=== PATIENT | male | born 1955 | race Caucasian/White ===

== ENCOUNTER 2019-06-12 19:25 | Inpatient (IN) | payer MEDICAID, MEDICARE ==
[~2019-06-12] VITALS: Ht 172.7 cm; Wt 107.5 kg
[2019-06-12 19:25] VITALS: BP_SYST 137
[~2019-06-12 19:25] MED LIST: CLIN300C11 PO; DOXY100T2 PO; SACC250C3 PO
--- NOTE | 2019-06-12 19:31 | NUR ---
Pt from [facility] with c/o SOB and non-provoked C/P that radiates to Left neck and jaw with a pulling sensation x 3 hours [employer] [employer]. Pt also c/o of heaviness to left arm. Pt states that he's been coughing up copious amounts of green sputum x 2 days. Inspiratory wheezes to Left Lower Lung Castillo, scattered Rhonchi at all castillo, diminished to bases with SPO2 99% RA. Pt at [facility] for therapy to RLE. Redness, swelling and flaking skin to BLE and he was dx with cellulitis and tx at [place] with unknown antibiotics 7 days ago and finished course 2 days ago. Generalized pitting edema 2-3+ pitting to BLE. Abdomen distended, soft, active BS x 4.
--- NOTE | 2019-06-12 19:31 | NUR ---
Placed in room 01 . Placed on schedule announcer, blood pressure machine and pulse oximeter. To gown for exam. Side rails up.
--- NOTE | 2019-06-12 19:40 | NUR ---
Dr. West at bedside.
--- NOTE | 2019-06-12 19:45 | NUR ---
RT at bedside to administer breathing tx.
[2019-06-12] MEDS ORDERED: ASPIRIN 325 MG TABLET PO ONE (20:00)
[2019-06-12] MEDS ORDERED: IPRATROPIUM/ALBUTEROL SULFATE 3 ML AMPUL.NEB (DUONEB) ONE (20:00)
[2019-06-12] MEDS ORDERED: NITROGLYCERIN 0.4 MG TAB.SUBL SL ONE (20:00)
--- NOTE | 2019-06-12 20:00 | NUR ---
# 20 gauge angiocath placed to LFA. Use of asceptic technique. Opsite placed over site. Blood return noted. Blood for lab drawn from site. Flushed with 10 cc of normal saline. No evidence of infiltration noted. Patient tolerated well.
--- NOTE | 2019-06-12 20:00 | NUR ---
Pt continues to c/o left sided C/P 02/06, non-radiating. B/P 130/72, P 92, R 20, T 99. Dr. West made aware. NTG SL to be given.
--- NOTE | 2019-06-12 20:05 | NUR ---
ASA 325 mg PO given at this time.
--- NOTE | 2019-06-12 20:10 | NUR ---
X-ray at bedside.
--- NOTE | 2019-06-12 20:10 | NUR ---
Pt verbalizes mild relief in left sided C/P at 4/10. V/S 140/76, P 90, R 20, T 99.1, SPO2 100% RA. Second dose of NTG 0.4 mg SL given.
--- NOTE | 2019-06-12 20:15 | NUR ---
Pt verbalizes effective relief in C/P at 0/10. V/S 136/73, P 95, R 20, T 99.1, SPO2 100% RA. Dr. West made aware.
[2019-06-12 20:21] LABS: BASOPHILS % (AUTO) 0.4 % (0.0-2.0); EOSINOPHILS # (AUTO) 0.1 K/uL (0.0-0.4); EOSINOPHILS % (AUTO) 1.4 % (0.0-4.0); HEMATOCRIT 38.8 % (36-54); LYMPHOCYTES # (AUTO) 0.9 K/uL (1.0-5.5); LYMPHOCYTES % (AUTO) 18.6 % (20.5-51.5); MEAN CORPUSCULAR HEMOGLOBIN 30 pg (27-31); MEAN CORPUSCULAR HGB CONC 34 % (32-36); MEAN CORPUSCULAR VOLUME 88 fL (79.0-98.0); MONOCYTES # (AUTO) 0.6 K/uL (0.0-1.0); MONOCYTES % (AUTO) 11.2 % (1.7-9.3); NEUTROPHILS # (AUTO) 3.4 K/uL (1.8-7.7); NEUTROPHILS % (AUTO) 68.4 % (40.0-70.0); PLATELET COUNT (AUTO) 162 K/uL (130-430); RED CELL DISTRIBUTION WIDTH 14.2 % (9.0-15.0)
[2019-06-12 20:41] LABS: INR 0.9 (0.80-1.20); PROTHROMBIN TIME 9.1 SECS (9.5-12.5)
[2019-06-12 20:42] LABS: ALBUMIN 3.3 g/dL (3.4-4.8); CALCIUM 8.2 mg/dL (8.4-11.0); CREATININE 0.64 mg/dL (0.55-1.30); POTASSIUM 3.7 mmol/L (3.5-5.1); TOTAL BILIRUBIN 0.4 mg/dL (0.0-1.0)
[2019-06-12 21:14] LABS: CKMB RELATIVE INDEX 2.4 (0.0-2.9); CREATINE KINASE MB 7.7 ng/mL (0-3.6)
[2019-06-12 21:55] LABS: BILIRUBIN,URINE NEGATIVE (NEGATIVE); BLOOD, URINE NEGATIVE (NEGATIVE); CLARITY/URINE CLEAR (CLEAR); COLOR,URINE YELLOW (YELLOW); GLUCOSE,URINE NEGATIVE (NEGATIVE); KETONES,URINE NEGATIVE (NEGATIVE); LEUKOCYTE ESTERASE ,URINE NEGATIVE (NEGATIVE); NITRITE, URINE NEGATIVE (NEGATIVE); PH,URINE 7.5 (5.0-8.0); PROTEIN URINE NEGATIVE (NEGATIVE)
--- NOTE | 2019-06-12 22:00 | NUR ---
Pt resting quietly, even and non-labored respirations, VSS, NAD.
[2019-06-12 22:01] LABS: UROBILINOGEN,URINE >=8 (0.2-1.0)
[2019-06-12] MEDS ORDERED: IPRATROPIUM/ALBUTEROL SULFATE 3 ML AMPUL.NEB (DUONEB) INH ONE (23:15)
[2019-06-12] MEDS ORDERED: IOHEXOL 350 mgI/mL, 150 ML INFUS..BTL IV ONE (23:24)
[2019-06-13] VITALS (7 sets, daily range): BP systolic 119–151
--- NOTE | 2019-06-13 00:21 | NUR ---
ADMIT NOTE Received pt from ER to the floor with a diagnosis of chest pain. Admission process initiated. patient oriented to pain management, safety and call light-teach back done.
--- NOTE | 2019-06-13 00:25 | NUR ---
Patient will be admitted to care of Dr. Ocampo. Admitted to Tele unit. Will go to room 105B. Belongings list completed. Summary report printed. Report will be given at bedside.
--- NOTE | 2019-06-13 00:51 | NUR ---
CONSULT: CONSULT CALLED FOR DOCTOR LANCE I SPOKE WITH SHANTI MILLIGAN REASON FOR CONSULT: CHEST PAIN REQUESTING CONSULT: DR. LANDAVERDE SOLOIST DANCER PHONE NUMBER: [phone]
--- NOTE | 2019-06-13 01:00 | NUR ---
initial notes: pt is awake, alert, oriented x 4, no chest pain, no sob, not distress, vital signa re with in normal limit. sinus rhythm on monitor. iv lock to left fore arm gauge 20- intact and patent. dry flaky skin to both legs, pitting edema to both legs. no skin breakdown at the back. pt is able to ambulate with cane. assess pt and charted. refused flu vacc. discuss plan of care. orient to room and call light, and safety precaution. pt verbalized understanding. needs attended, call light in reach. low bed position. side rails up. will monitor.
--- NOTE | 2019-06-13 04:11 | NUR ---
pt wakes up. assisted pt to bathroom. stable. no pain. not distress. back to bed. needs attended. call light in reach. bed alarm on. will monitor.
--- NOTE | 2019-06-13 05:48 | NUR ---
sleeping, comfortable. no sob. no sign of pain, distress. stable. needs attended. call light in reach.low bed position. bed alarm on. will monitor.
--- NOTE | 2019-06-13 07:11 | NUR ---
closing: pt is sitting on edge of bed, alert, awake. no chest pain, stable. needs attended the whole shift. call light in reach. low bed position. will give bedside report to am rn.
--- NOTE | 2019-06-13 07:55 | NUR ---
INITIAL NOTE RECEIVED PT IN BED, NO S/S OF DISTRESS OR SOB NOTED, PT HAS NO C/O PAIN AT THIS TIME, PT IN STABLE CONDITION, PT AAOX4, VERBAL, IV CATHETER PATENT, NO SIGNS OF INFECTION OR INFILTRATION NOTED, SALINE LOCK. PT HAS NO C/O CHEST PAIN AT THIS TIME. BED AT LOWEST POSITION, CALL LIGHT WITHIN REACH, WILL CONTINUE TO MONITOR PT FOR ANY CHANGES, FALL AND SAFETY PRECAUTIONS IN PLACE.
--- NOTE | 2019-06-13 10:27 | NUR ---
ROUNDS PT IN BED, NO S/S OF DISTRESS OR SOB NOTED, PT HAS NO C/O PAIN AT THIS TIME. PT IN STABLE CONDITION. PT WATCHING TV, WILL CONTINUE TO MONITOR PT FOR ANY CHANGES.
[2019-06-13] MEDS: ACETAMINOPHEN 325 MG TABLET PO PRN ×2 (10:39→20:26)
[2019-06-13] MEDS: IPRATROPIUM/ALBUTEROL SULFATE 3 ML AMPUL.NEB (DUONEB) INH SCH ×4 (11:32→23:43)
--- NOTE | 2019-06-13 14:20 | NUR ---
DC Planning: YONI Lopez made aware that the pt has [place] insurance which may need to transfer to [place] in network. Jessica is to f/u with dr. Ocampo for the transfer order if pt required further treatments.
--- NOTE | 2019-06-13 14:31 | NUR ---
ROUNDS PT IN BED, NO S/S OF DISTRESS OR SOB NOTED. PT IN STABLE CONDITION. PT SLEEPING, WILL CONTINUE TO MONITOR PT FOR ANY CHANGES.
--- NOTE | 2019-06-13 16:25 | NUR ---
ROUNDS PT IN BED, NO S/S OF DISTRESS OR SOB NOTED. PT IN STABLE CONDITION. PT SLEEPING, WILL CONTINUE TO MONITOR PT FOR ANY CHANGES.
--- NOTE | 2019-06-13 17:02 | NUR ---
MD CALL DR LANCE YATES AND AWAITING CALL BACK TO SEE IF HE CLEARS PT TO BE D/C HOME TODAY.
--- NOTE | 2019-06-13 17:13 | NUR ---
CALL DR AKHIL YATES, AWAITING CALL BACK FOR D/C ORDER. Addendum: 06/13/19 at 1816 by Jessica Aviles RN CALLED BACK AND GAVE ORDERS FOR D/C
--- NOTE | 2019-06-13 18:13 | NUR ---
CALL DR AKHIL YATES TO MAKE HIM AWARE THAT PT IS SHORT OF BREATH WHEN HE LAST WALKED TO THE RESTROOM, NURSE ASKED PT TO WALK WITH HIM TO SEE IF HE WAS SHORT OF BREATH AND HE STATED THAT HE DID NOT WANT TO GET UP, HE ALSO STATED THAT HE DOES NOT HAVE A RIDE HOME AND HE DOES NOT HAVE KEYS TO GET INTO HIS HOUSE. CHARGE NURSE MADE AWARE. Addendum: 06/13/19 at 1827 by Jessica Aviles RN PULSE OXYMETRY AT 97% ON ROOM AIR, NO SOB NOTED.
--- NOTE | 2019-06-13 18:27 | NUR ---
CLOSING NOTE PT IN BED, NO S/S OF DISTRESS OR SOB NOTED, PT HAS NO C/O PAIN AT THIS TIME, PT IN STABLE CONDITION, PT AAOX4, VERBAL, IV CATHETER PATENT, NO SIGNS OF INFECTION OR INFILTRATION NOTED, SALINE LOCK. PT HAS NO C/O CHEST PAIN AT THIS TIME. BED AT LOWEST POSITION, CALL LIGHT WITHIN REACH, WILL ENDORSE CARE OF PT TO INCOMING NURSE, FALL AND SAFETY PRECAUTIONS IN PLACE.
--- NOTE | 2019-06-13 19:18 | NUR ---
OPENING NOTE RECEIVED CARE OF PT AND SBAR REPORT. PT RESTING IN BED, NO S/S OF ACUTE DISTRESS OR SOB NOTED. PT HAS NO C/O PAIN AT THIS TIME, PT IN STABLE CONDITION. PT AAOX4, ABLE TO VERBALIZE NEEDS. IV CATHETER IS PATENT, NO S/S OF INFILTRATION AT IV SITE. IV IS SALINE LOCKED. PT HAS NO C/O CHEST PAIN AT THIS TIME. SAFETY PRECAUTIONS ARE IN PLACE: BED IS LOCKED IN LOWEST POSITION, CALL LIGHT WITH PT, SIDE RAILS UP X2, BED ALARM ON, CLOSE TO NURSES STATION. WILL CONT TO MONITOR.
--- NOTE | 2019-06-13 20:26 | NUR ---
HEADACHE/TYLENOL PT REPORTING HEADACHE. TYLENOL 650 MG PO ADMINISTERED. MEDICATION AND POTENTIAL SIDE EFFECTS DISCUSSED WITH PT. PT ASSISTED TO REPOSITION FOR COMFORT. PT DENIES FURTHER NEEDS. SAFETY MAINTAINED. WILL MONITOR.
--- NOTE | 2019-06-13 22:05 | NUR ---
RN NOTE: PT PROVIDED WITH WARM BLANKETS AND COFFEE PER REQUEST. PT RESTING IN BED, NO S/S OF ACUTE DISTRESS, BREATHING IS UNLABORED TO ROOM AIR. VSS. SAFETY AND FALL PRECAUTIONS ARE IN PLACE. WILL MONITOR.
[2019-06-14 00:15] VITALS: BP_SYST 138
--- NOTE | 2019-06-14 00:35 | NUR ---
SLEEPING PT RESTING IN BED WITH EYES CLOSED. AUDIBLE SNORE CAN BE HEARD. NO S/S OF ACUTE DISTRESS, NO SOB NOTED. BREATHING IS EVEN AND UNLABORED TO ROOM AIR. NO SIGN OF PAIN OR DISCOMFORT. SAFETY PRECAUTIONS OBSERVED. WILL MONITOR.
--- NOTE | 2019-06-14 02:19 | NUR ---
RESTING PT RESTING IN BED WITH EYES CLOSED. SNORE CAN BE HEARD. NO S/S OF ACUTE DISTRESS, NO SOB NOTED. BREATHING IS EVEN AND UNLABORED TO ROOM AIR. NO SIGN OF PAIN OR DISCOMFORT, PT APPEARS COMFORTABLE AT THIS TIME. SAFETY PRECAUTIONS REMAIN IN PLACE. WILL MONITOR.
[2019-06-14] MEDS: IPRATROPIUM/ALBUTEROL SULFATE 3 ML AMPUL.NEB (DUONEB) INH SCH ×2 (03:00→07:16)
--- NOTE | 2019-06-14 04:19 | NUR ---
RN NOTE: PT USED URINAL, 400 CC OF URINE NOTED. PT EASILY AROUSED TO SPEECH. PT RESTING IN BED, NO S/S OF ACUTE DISTRESS. BREATHING IS UNLABORED TO ROOM AIR. SAFETY AND FALL PRECAUTIONS MAINTAINED. WILL MONITOR.
--- NOTE | 2019-06-14 06:38 | NUR ---
CLOSING NOTE PT RESTING IN BED IN NO ACUTE DISTRESS. NO SOB NOTED THROUGHOUT SHIFT. BREATHING IS UNLABORED TO ROOM AIR. NO PAIN REPORTED AT THIS TIME. ALL NEEDS MET DURING SHIFT. SAFETY MAINTAINED. WILL CONTINUE TO MONITOR UNTIL PT CARE IS ENDORSED TO DAY SHIFT RN.
[2019-06-14] MEDS: ACETAMINOPHEN 325 MG TABLET PO PRN (07:27)
--- NOTE | 2019-06-14 07:29 | NUR ---
OPENING NOTE RECEIVED IN BED, PT IS AAOX4, C/O OF HEADACHE, GIVEN TYLENOL. OTHERWISE PT HAS NO ACUTE DISTRESS OR SOB NOTED. PT HAS STATED HE HAS LITTLE CHEST PAIN, HE POINTED ON HIS EPIGASTRIC AREA. PT IN STABLE CONDITION. NO S/S OF INFILTRATION AT IV SITE. IV IS SALINE LOCKED. SAFETY PRECAUTIONS ARE IN PLACE: BED IS LOCKED IN LOWEST POSITION, CALL LIGHT WITH PT, SIDE RAILS UP X2, BED ALARM ON, CLOSE TO NURSES STATION. WILL CONT TO MONITOR.
[2019-06-14 08:28] VITALS: BP_SYST 128
[2019-06-14] MEDS ORDERED: ASPIRIN 81 MG TAB.CHEW PO SCH (09:00)
[2019-06-14] MEDS ORDERED: MED4 PO (09:53)
[2019-06-14] MEDS ORDERED: LEVO750T45 PO (09:54)
[2019-06-14] MEDS ORDERED: ALBU8.5H8 INH (09:55)
--- NOTE | 2019-06-14 10:00 | NUR ---
DR LUCAS HERE AND SEEN PT, SAID OK TO DISCHARGE PATIENT. PER PT HAS NO CHF.
[2019-06-14 10:03] VITALS: BP_SYST 128
--- NOTE | 2019-06-14 10:28 | NUR ---
D/C Patient Patient given medication reconciliation form and D/C instructions. Exit Care provided. Patient verbalized understanding. MD discussed with patient the results and treatment provided. Ambulatory with steady gait for discharge to home. Patient in stable condition, ID band removed. IV catheter removed, intact and dressing applied, no active bleeding. Rx for ALBUTEROL, MEDROL AND LEVAQUIN given. Patient educated on pain management. All belongings sent with patient.
== END 2019-06-14 10:28 | disposition home or self-care (01) | DRG 391 ==
LOC: SED 19:25 → STU 22:48
PROVIDERS: ADMIT Internal Medicine Hospice and Palliative Medicine; ATTEND Internal Medicine Hospice and Palliative Medicine
DX: K21.9 Gastro-esophageal reflux disease without esophagitis (principal); J18.9 Pneumonia, unspecified organism; J44.1 Chronic obstructive pulmonary disease with (acute) exacerbation; L03.115 Cellulitis of right lower limb; L03.116 Cellulitis of left lower limb; J44.0 Chronic obstructive pulmonary disease with (acute) lower respiratory infection; I11.0 Hypertensive heart disease with heart failure; F17.210 Nicotine dependence, cigarettes, uncomplicated; G62.9 Polyneuropathy, unspecified; G89.4 Chronic pain syndrome; M21.371 Foot drop, right foot; I50.9 Heart failure, unspecified; R07.89 Other chest pain; I25.2 Old myocardial infarction; Z79.899 Other long term (current) drug therapy
CPT/HCPCS: 36415; 71045; 71275; 80053; 81003; 82550-TC; 82553-TC; 83605; 83880; 84484; 85025; 85379; 85610-TC; 87040-TC; 87081; 93005; 94640; 94760; 99285; G0378; J7620; Q9967

== ENCOUNTER 2019-10-23 19:25 | Emergency (ER) | payer MEDICARE, MEDICAID ==
[~2019-10-23] VITALS: Ht 172.7 cm; Wt 104.3 kg
[~2019-10-23 19:25] MED LIST changes: +ALBU8.5H8 INH; +LEVO750T45 PO; +MED4 PO
[2019-10-23 19:45] VITALS: BP_SYST 149
--- NOTE | 2019-10-23 21:38 | NUR ---
Patient left without being seen. No treatment provided. ER aware
--- NOTE | 2019-10-23 21:38 | NUR ---
Called pt in, no answer
== END 2019-10-23 21:38 | disposition left against medical advice (07) ==
LOC: SED 19:25
DX: M79.605 Pain in left leg (principal); R06.02 Shortness of breath; Z53.21 Procedure and treatment not carried out due to patient leaving prior to being seen by health care provider

== ENCOUNTER 2019-11-01 15:26 | Emergency (ER) | payer MEDICARE, MEDICAID ==
[~2019-11-01] VITALS: Ht 172.7 cm; Wt 108.9 kg
--- NOTE | 2019-11-01 15:38 | NUR ---
Placed in room 08 . Placed on salesperson corsets, blood pressure machine and pulse oximeter. To gown for exam. Side rails up.
--- NOTE | 2019-11-01 15:38 | NUR ---
ER Dr. Flor at bedside examining patient.
[2019-11-01 15:39] VITALS: BP_SYST 142
[2019-11-01] MEDS ORDERED: FURO-150 PO (15:39)
--- NOTE | 2019-11-01 15:40 | NUR ---
Pt AAOx4 ambulated into ED c/o SOB since yesterday and 8/10 pain to R leg. 2+ edema/redness to bilateral lower legs. Pt has hx of CHF, COPD, HTN, Asthma. No other injuries/complaints per pt/noted. Will continue to monitor.
[2019-11-01] MEDS ORDERED: MAGNESIUM SULFATE 50 ML IV ONE (15:45)
[2019-11-01] MEDS ORDERED: FUROSEMIDE 40 MG/4 ML VIAL IVP ONE (15:45)
[2019-11-01] MEDS ORDERED: VANCOMYCIN HCL 1,000 MG in NS 250 ML IV ONE (15:45)
[2019-11-01] MEDS ORDERED: methylPREDNISolone SOD SUCC/PF 62.5 MG/ML VIAL IVP ONE (15:45)
[2019-11-01] MEDS ORDERED: GABA-531 PO (15:54)
[2019-11-01] MEDS ORDERED: ALBMDI INH (15:54)
--- NOTE | 2019-11-01 15:54 | NUR ---
Pt states home address is : [id number], [address], [place]. Pt currently lives with friend.
--- NOTE | 2019-11-01 15:54 | NUR ---
Medication reconciliation completed with information provided by verbal confirmation from pt. Any prior medication reconciliation on file was reviewed and corrected.
[2019-11-01] MEDS ORDERED: VANCOMYCIN HCL 1000 MG/VIAL IV ONE (16:14)
--- NOTE | 2019-11-01 16:37 | NUR ---
Medication administered. Pt tolerated well. No adverse reactions noted. Urinal provided.
[2019-11-01 16:43] LABS: BASOPHILS % (AUTO) 0.5 % (0.0-2.0); EOSINOPHILS # (AUTO) 0.2 K/uL (0.0-0.4); EOSINOPHILS % (AUTO) 3.2 % (0.0-4.0); HEMOGLOBIN 13.3 g/dL (14.0-18.0); LYMPHOCYTES % (AUTO) 17.9 % (20.5-51.5); MEAN CORPUSCULAR HEMOGLOBIN 29 pg (27-31); MEAN CORPUSCULAR HGB CONC 33 % (32-36); MEAN CORPUSCULAR VOLUME 89 fL (79.0-98.0); MONOCYTES # (AUTO) 0.5 K/uL (0.0-1.0); MONOCYTES % (AUTO) 7.9 % (1.7-9.3); NEUTROPHILS # (AUTO) 4.1 K/uL (1.8-7.7); NEUTROPHILS % (AUTO) 70.5 % (40.0-70.0); PLATELET COUNT (AUTO) 216 K/uL (130-430); RED CELL DISTRIBUTION WIDTH 14.2 % (9.0-15.0); WHITE BLOOD COUNT (AUTO) 5.8 K/uL (4.8-10.8)
[2019-11-01 17:10] LABS: CALCIUM 8.7 mg/dL (8.4-11.0); CREATININE 0.73 mg/dL (0.55-1.30); POTASSIUM 3.9 mmol/L (3.5-5.1)
[2019-11-01 17:16] LABS: ALBUMIN 3.5 g/dL (3.4-4.8); TOTAL BILIRUBIN 0.2 mg/dL (0.0-1.0)
--- NOTE | 2019-11-01 17:24 | NUR ---
PT RESTING COMFORTABLY IN BED WITH NO SIGNS OF DISTRESS. WILL CONTINUE TO MONITOR.
[2019-11-01] MEDS ORDERED: KETOROLAC TROMETHAMINE 30 MG VIAL IVP ONE (17:30)
--- NOTE | 2019-11-01 17:31 | NUR ---
Pt reports 6/10 pain to R leg
--- NOTE | 2019-11-01 17:31 | NUR ---
Dr. Flor notified.
[2019-11-01 18:23] LABS: BILIRUBIN,URINE NEGATIVE (NEGATIVE); BLOOD, URINE NEGATIVE (NEGATIVE); CLARITY/URINE CLEAR (CLEAR); COLOR,URINE YELLOW (YELLOW); GLUCOSE,URINE NEGATIVE (NEGATIVE); KETONES,URINE NEGATIVE (NEGATIVE); LEUKOCYTE ESTERASE ,URINE NEGATIVE (NEGATIVE); NITRITE, URINE NEGATIVE (NEGATIVE); PROTEIN URINE NEGATIVE (NEGATIVE); UROBILINOGEN,URINE 0.2 (0.2-1.0)
--- NOTE | 2019-11-01 20:00 | NUR ---
ASLEEP. VSS. NO DISTRESS NOTED.
[2019-11-01 21:20] VITALS: BP_SYST 140
--- NOTE | 2019-11-01 21:20 | NUR ---
Patient to be transferred to [facility]. Is being transferred due to higher level of care. Receiving facility has accepting physician and available space. ER physician has signed transfer form. Patient or responsible alliance party has agreed to transfer and signed form. Patient belongings inventoried and will be sent with patient. Copy of nursing notes, lab reports, EKG, Physicians Orders and X-rays to be sent with patient. Report called to BRITTNI VALLEJO at receiving facility. Receiving physician is SANDI YANG ON DUTY. [facility] has been called for transfer. ETA is 2100.
== END 2019-11-01 21:20 | disposition short-term general hospital (02) ==
LOC: SED 15:26
DX: J44.1 Chronic obstructive pulmonary disease with (acute) exacerbation (principal); I11.0 Hypertensive heart disease with heart failure; I50.9 Heart failure, unspecified; L03.115 Cellulitis of right lower limb; L03.116 Cellulitis of left lower limb; I25.2 Old myocardial infarction; F11.90 Opioid use, unspecified, uncomplicated
CPT/HCPCS: 36415; 71045; 80053; 81003; 83605; 83880; 84484; 85025; 87040; 93005; 96365; 96366; 96368; 96375; 99291; J1885; J1940; J2930; J3370; J3475; J7040

== ENCOUNTER 2020-04-01 21:18 | Emergency (ER) | payer MEDICARE, MEDICAID ==
[~2020-04-01] VITALS: Ht 172.7 cm; Wt 108.9 kg
[~2020-04-01 21:18] MED LIST changes: +ALBMDI INH; -ALBU8.5H8 INH; -CLIN300C11 PO; -DOXY100T2 PO; +FURO-150 PO; +GABA-531 PO; -LEVO750T45 PO; -MED4 PO; -SACC250C3 PO
[2020-04-01 21:44] VITALS: BP_SYST 160
[2020-04-02] MEDS ORDERED: KETOROLAC TROMETHAMINE 30 MG VIAL IM ONE (00:30)
[2020-04-02] MEDS ORDERED: cefTRIAXone 1 GM in LIDOCAINE 1%, 20 ML MDV 2.1 ML IM ONE (00:30)
== END 2020-04-02 00:50 | disposition left against medical advice (07) ==
LOC: SED 21:18
DX: M25.562 Pain in left knee (principal)
CPT/HCPCS: 99283

== ENCOUNTER 2020-04-19 20:59 | Emergency (ER) | payer MEDICARE, MEDICAID ==
[~2020-04-19] VITALS: Ht 172.7 cm; Wt 106.6 kg
[2020-04-19 21:05] VITALS: BP_SYST 137
--- NOTE | 2020-04-19 21:25 | NUR ---
Patient to ER bed [facility]. Side rails up. Report given to RAYA VALLEJO.
--- NOTE | 2020-04-19 21:30 | NUR ---
PATIENT BROUGHT IN BLS COMPLAINING OF LEFT KNEE AND RIGHT 5TH FINGER PAIN S/P TRIP AND FALL ONTO [place]. PAIN 8/. NO OTHER COMPLAINTS/INJURIES PER PATIENT OR NOTED. WILL CONTINUE TO MONITOR.
--- NOTE | 2020-04-19 21:48 | NUR ---
RADIOLOGY AT BEDSIDE.
--- NOTE | 2020-04-19 21:50 | NUR ---
DR. SKY AT BEDSIDE DISCUSSING RESULTS
[2020-04-19] MEDS ORDERED: IBUPROFEN 800 MG TABLET PO ONE (23:15)
[2020-04-19 23:20] VITALS: BP_SYST 128
--- NOTE | 2020-04-19 23:20 | NUR ---
Patient given written and verbal discharge instructions and verbalizes understanding. ER MD discussed with patient the results and treatment provided. Patient in stable condition. ID arm band removed. Rx of motrin given. Patient educated on pain management and to follow up with PMD. Pain Scale 0/10. Opportunity for questions provided and answered.
== END 2020-04-19 23:20 | disposition home or self-care (01) ==
LOC: SED 20:59
DX: S62.636A Displaced fracture of distal phalanx of right little finger, initial encounter for closed fracture (principal); S80.02XA Contusion of left knee, initial encounter; I11.0 Hypertensive heart disease with heart failure; I50.9 Heart failure, unspecified; J44.9 Chronic obstructive pulmonary disease, unspecified; I25.2 Old myocardial infarction; W01.0XXA Fall on same level from slipping, tripping and stumbling without subsequent striking against object, initial encounter; Y93.89 Activity, other specified; Y92.89 Other specified places as the place of occurrence of the external cause; Y99.8 Other external cause status
CPT/HCPCS: 73140-TC; 73564; 99284

== ENCOUNTER 2020-07-23 20:38 | Emergency (ER) | payer MEDICARE, MEDICAID, SELFPAY ==
[~2020-07-23] VITALS: Ht 172.7 cm; Wt 104.3 kg
[2020-07-23 20:38] VITALS: BP_SYST 181
[2020-07-23] MEDS ORDERED: MORPHINE 4 MG/ML INJ. SYRINGE IVP ONE (20:45)
[2020-07-23] MEDS: ONDANSETRON HCL 4 MG/2 ML VIAL IVP ONE (21:04)
[2020-07-23] MEDS: ACETAMINOPHEN 500 MG TABLET PO ONE (21:05)
[2020-07-23] MEDS: KETOROLAC TROMETHAMINE 30 MG VIAL IVP ONE (21:06)
[2020-07-23 21:23] LABS: BASOPHILS % (AUTO) 0.3 % (0.0-2.0); EOSINOPHILS # (AUTO) 0.1 K/uL (0.0-0.4); EOSINOPHILS % (AUTO) 0.5 % (0.0-4.0); HEMATOCRIT 41.7 % (36-54); HEMOGLOBIN 13.8 g/dL (14.0-18.0); LYMPHOCYTES # (AUTO) 0.9 K/uL (1.0-5.5); LYMPHOCYTES % (AUTO) 7.1 % (20.5-51.5); MEAN CORPUSCULAR HEMOGLOBIN 29 pg (27-31); MEAN CORPUSCULAR HGB CONC 33 % (32-36); MEAN CORPUSCULAR VOLUME 88 fL (79.0-98.0); MONOCYTES # (AUTO) 0.6 K/uL (0.0-1.0); MONOCYTES % (AUTO) 4.9 % (1.7-9.3); NEUTROPHILS # (AUTO) 11.2 K/uL (1.8-7.7); NEUTROPHILS % (AUTO) 87.2 % (40.0-70.0); PLATELET COUNT (AUTO) 207 K/uL (130-430); RED BLOOD CELL COUNT(AUTO) 4.73 MIL/uL (4.2-6.2); RED CELL DISTRIBUTION WIDTH 14.4 % (9.0-15.0); WHITE BLOOD COUNT (AUTO) 12.9 K/uL (4.8-10.8)
[2020-07-23] MEDS: ASPIRIN 81 MG TAB.CHEW PO ONE (21:45)
[2020-07-23] MEDS: NITROGLYCERIN 0.4 MG TAB.SUBL SL ONE (21:45)
[2020-07-23 21:51] LABS: ANION GAP 8 (5-15); CALCIUM 8.7 mg/dL (8.4-11.0); CHLORIDE 102 mmol/L (98-107); GLUCOSE 114 mg/dL (70-99); SODIUM SERUM 137 mmol/L (136-145); UREA NITROGEN, BLOOD 25 mg/dL (8-21)
[2020-07-23 21:59] LABS: ALANINE AMINOTRANSFERASE 45 U/L (12-78); ALCOHOL, BLOOD 3 mg/dL (<10); ASPARTATE AMINOTRANSFERASE 31 U/L (10-37); TOTAL BILIRUBIN 0.4 mg/dL (0.0-1.0)
[2020-07-23] MEDS: IPRATROPIUM/ALBUTEROL SULFATE 3 ML AMPUL.NEB (DUONEB) INH ONE (22:01)
[2020-07-23] MEDS: NACL 0.9% 1,000 ML IV ONE (22:02)
[2020-07-23 22:04] LABS: GFR AFRICAN AMERICAN 125 mL/min (>90)
[2020-07-23 22:22] LABS: BILIRUBIN,URINE NEGATIVE (NEGATIVE); BLOOD, URINE NEGATIVE (NEGATIVE); CLARITY/URINE CLEAR (CLEAR); COLOR,URINE YELLOW (YELLOW); GLUCOSE,URINE NEGATIVE (NEGATIVE); KETONES,URINE NEGATIVE (NEGATIVE); LEUKOCYTE ESTERASE ,URINE TRACE (NEGATIVE); NITRITE, URINE NEGATIVE (NEGATIVE); PH,URINE 6.5 (5.0-8.0); PROTEIN URINE NEGATIVE (NEGATIVE)
[2020-07-23 22:24] LABS: BARBITURATE, URINE NEGATIVE (NEG <=200); BENZODIAZEPINE, URINE NEGATIVE (NEG <=150); CANNABINOID, URINE NEGATIVE (NEG <=50); COCAINE, URINE NEGATIVE (NEG <=150); METHAMPHETAMINES SCREEN,URINE POSITIVE (NEG <=500); OPIATE, URINE NEGATIVE (NEG <=100); PHENCYCLIDINE SCREEN,URINE NEGATIVE (NEG <=25); UR TRICYCLIC ANTIDEPRESSANTS NEGATIVE (NEG <=300); URINE AMPHETAMINE POSITIVE (NEG <=500); URINE METHADONE NEGATIVE (NEG <=200); URINE OXYCODONE SCREEN NEGATIVE (NEG <=100); URINE PROPOXYPHENE SCREEN NEGATIVE (NEG <=300)
[2020-07-23 22:31] LABS: RBC,URINE NONE SEEN /HPF (0-3); WBC,URINE NONE SEEN /HPF (0-3)
[2020-07-23 22:32] LABS: BACTERIA,URINE RARE /HPF (None Seen)
[2020-07-23] MEDS: cefTRIAXone 1 GM in D5W 50 ML IV ONE (22:57)
[2020-07-24 01:15] VITALS: BP_SYST 128
== END 2020-07-24 01:14 | disposition short-term general hospital (02) ==
LOC: SED 20:38
DX: R07.89 Other chest pain (principal); R50.9 Fever, unspecified; I11.0 Hypertensive heart disease with heart failure; I50.9 Heart failure, unspecified; J44.9 Chronic obstructive pulmonary disease, unspecified; I25.2 Old myocardial infarction; F17.200 Nicotine dependence, unspecified, uncomplicated; Z79.899 Other long term (current) drug therapy; Z71.6 Tobacco abuse counseling; Z20.828 Contact with and (suspected) exposure to other viral communicable diseases
CPT/HCPCS: 36415; 71045; 80053; 80307; 81000; 83605; 83880; 84484; 85025; 87040; 87426; 94640; 96361; 96365; 99285; G0482; J7030; 87186-TC; 93005

== ENCOUNTER 2021-04-10 23:08 | Inpatient (IN) | payer MEDICARE, MEDICAID, SELFPAY ==
[~2021-04-10] VITALS: Ht 172.7 cm; Wt 111.6 kg
[2021-04-10 23:10] VITALS: BP_SYST 156
[2021-04-11 00:50] LABS: BASOPHILS # (AUTO) 0.1 K/uL (0.0-0.2); BASOPHILS % (AUTO) 0.9 % (0.0-2.0); EOSINOPHILS # (AUTO) 0.2 K/uL (0.0-0.4); EOSINOPHILS % (AUTO) 1.2 % (0.0-4.0); HEMATOCRIT 41.1 % (36-54); HEMOGLOBIN 13.8 g/dL (14.0-18.0); LYMPHOCYTES # (AUTO) 0.8 K/uL (1.0-5.5); LYMPHOCYTES % (AUTO) 5.9 % (20.5-51.5); MEAN CORPUSCULAR HEMOGLOBIN 31 pg (27-31); MEAN CORPUSCULAR HGB CONC 34 % (32-36); MEAN CORPUSCULAR VOLUME 91 fL (79.0-98.0); MONOCYTES # (AUTO) 0.5 K/uL (0.0-1.0); MONOCYTES % (AUTO) 3.5 % (1.7-9.3); NEUTROPHILS # (AUTO) 11.9 K/uL (1.8-7.7); NEUTROPHILS % (AUTO) 88.5 % (40.0-70.0); PLATELET COUNT (AUTO) 240 K/uL (130-430); RED BLOOD CELL COUNT(AUTO) 4.52 MIL/uL (4.2-6.2); RED CELL DISTRIBUTION WIDTH 15.1 % (9.0-15.0); WHITE BLOOD COUNT (AUTO) 13.4 K/uL (4.8-10.8)
[2021-04-11 01:02] LABS: CREATININE 0.83 mg/dL (0.55-1.30)
[2021-04-11 01:07] LABS: ALBUMIN 4.1 g/dL (3.4-4.8); TOTAL BILIRUBIN 0.6 mg/dL (0.0-1.0)
[2021-04-11] MEDS ORDERED: ACETAMINOPHEN 500 MG TABLET ONE (01:08)
[2021-04-11] MEDS ORDERED: ACETAMINOPHEN 500 MG TABLET PO ONE (01:15)
[2021-04-11] MEDS ORDERED: VANCOMYCIN HCL 1,000 MG in NS 250 ML IV ONE (03:45)
[2021-04-11] MEDS ORDERED: PIPERACILLIN/TAZO 3.375 GM in NS 50 ML IV ONE (03:45)
[2021-04-11] MEDS ORDERED: cefTRIAXone 1 GM VIAL IM ONE (04:00)
[2021-04-11] MEDS ORDERED: SULFAMETHOXAZOLE/TRIMETHOPR DS 1 TABLET PO ONE (04:00)
[2021-04-11] MEDS ORDERED: VANCOMYCIN HCL 1000 MG/VIAL IV ONE (05:16)
[2021-04-11] MEDS ORDERED: PIPERACILLIN/TAZOBACTAM 3.375 GM/VIAL (ZOSYN) IV ONE (05:16)
[2021-04-11 09:00] VITALS: BP_SYST 128
[2021-04-11 12:00] VITALS: BP_SYST 128
[2021-04-11] MEDS: PIPERACILLIN/TAZO 3.375 GM in NS 50 ML IV SCH ×2 (14:19→22:06)
[2021-04-11] MEDS: VANCOMYCIN HCL 1,500 MG in NS 250 ML IV SCH (15:20)
[2021-04-11 16:00] VITALS: BP_SYST 126
[2021-04-11 19:48] VITALS: BP_SYST 135
[2021-04-11] MEDS ORDERED: ALBUTEROL SULFATE 0.083% 2.5 MG/3 ML VIAL.NEB INH PRN (21:45)
[2021-04-11] MEDS: traMADol HCL HCL 50 MG TABLET (ULTRAM) PO PRN (22:06)
[2021-04-11 22:52] VITALS: BP_SYST 135
[2021-04-12] VITALS: BP_SYST 127
[2021-04-12] MEDS: VANCOMYCIN HCL 1,500 MG in NS 250 ML IV SCH ×2 (02:27→15:00)
[2021-04-12] MEDS: PIPERACILLIN/TAZO 3.375 GM in NS 50 ML IV SCH ×3 (05:41→22:05)
[2021-04-12 06:42] LABS: BASOPHILS % (AUTO) 0.3 % (0.0-2.0); EOSINOPHILS # (AUTO) 0.3 K/uL (0.0-0.4); EOSINOPHILS % (AUTO) 2.9 % (0.0-4.0); HEMATOCRIT 37.8 % (36-54); HEMOGLOBIN 12.7 g/dL (14.0-18.0); LYMPHOCYTES # (AUTO) 0.9 K/uL (1.0-5.5); LYMPHOCYTES % (AUTO) 9.5 % (20.5-51.5); MEAN CORPUSCULAR HEMOGLOBIN 30 pg (27-31); MEAN CORPUSCULAR HGB CONC 34 % (32-36); MEAN CORPUSCULAR VOLUME 90 fL (79.0-98.0); MONOCYTES # (AUTO) 0.6 K/uL (0.0-1.0); MONOCYTES % (AUTO) 6.7 % (1.7-9.3); NEUTROPHILS # (AUTO) 7.4 K/uL (1.8-7.7); NEUTROPHILS % (AUTO) 80.6 % (40.0-70.0); PLATELET COUNT (AUTO) 175 K/uL (130-430); RED CELL DISTRIBUTION WIDTH 15.2 % (9.0-15.0); WHITE BLOOD COUNT (AUTO) 9.2 K/uL (4.8-10.8)
[2021-04-12 07:19] LABS: ALBUMIN 2.8 g/dL (3.4-4.8); CALCIUM 8.4 mg/dL (8.4-11.0); CREATININE 0.63 mg/dL (0.55-1.30); THYROID STIMULATING HORMONE 0.6 uIu/mL (0.34-4.82); TOTAL BILIRUBIN 0.6 mg/dL (0.0-1.0)
[2021-04-12 08:00] VITALS: BP_SYST 134
[2021-04-12 12:00] VITALS: BP_SYST 111
[2021-04-12 16:40] VITALS: BP_SYST 128
[2021-04-12 19:48] VITALS: BP_SYST 123
[2021-04-12] MEDS: VANCOMYCIN HCL 1,000 MG in NS 250 ML IV SCH (23:28)
[2021-04-12 23:33] VITALS: BP_SYST 106
[2021-04-13] MEDS: traMADol HCL HCL 50 MG TABLET (ULTRAM) PO PRN ×2 (04:36→20:40)
[2021-04-13] MEDS: PIPERACILLIN/TAZO 3.375 GM in NS 50 ML IV SCH ×2 (05:43→14:24)
[2021-04-13 07:36] LABS: BASOPHILS % (AUTO) 0.3 % (0.0-2.0); EOSINOPHILS # (AUTO) 0.2 K/uL (0.0-0.4); EOSINOPHILS % (AUTO) 3.2 % (0.0-4.0); HEMATOCRIT 35.8 % (36-54); LYMPHOCYTES % (AUTO) 15.6 % (20.5-51.5); MEAN CORPUSCULAR HEMOGLOBIN 30 pg (27-31); MEAN CORPUSCULAR HGB CONC 34 % (32-36); MEAN CORPUSCULAR VOLUME 89 fL (79.0-98.0); MONOCYTES # (AUTO) 0.6 K/uL (0.0-1.0); MONOCYTES % (AUTO) 10.2 % (1.7-9.3); NEUTROPHILS # (AUTO) 4.5 K/uL (1.8-7.7); NEUTROPHILS % (AUTO) 70.7 % (40.0-70.0); PLATELET COUNT (AUTO) 173 K/uL (130-430); RED BLOOD CELL COUNT(AUTO) 4.02 MIL/uL (4.2-6.2); WHITE BLOOD COUNT (AUTO) 6.4 K/uL (4.8-10.8)
[2021-04-13 07:56] LABS: CALCIUM 8.7 mg/dL (8.4-11.0); CREATININE 0.6 mg/dL (0.55-1.30); POTASSIUM 3.9 mmol/L (3.5-5.1)
[2021-04-13 08:00] VITALS: BP_SYST 145
[2021-04-13] MEDS: VANCOMYCIN HCL 1,000 MG in NS 250 ML IV SCH ×3 (09:04→23:18)
[2021-04-13 12:10] VITALS: BP_SYST 131
[2021-04-13 16:09] VITALS: BP_SYST 139
[2021-04-13 19:39] VITALS: BP_SYST 150
[2021-04-14 00:47] VITALS: BP_SYST 138
[2021-04-14] MEDS: VANCOMYCIN HCL 1,000 MG in NS 250 ML IV SCH (06:02)
[2021-04-14 07:50] VITALS: BP_SYST 157
[2021-04-14 08:08] LABS: ALBUMIN 3.1 g/dL (3.4-4.8); CALCIUM 9.2 mg/dL (8.4-11.0); CREATININE 0.71 mg/dL (0.55-1.30); POTASSIUM 4.1 mmol/L (3.5-5.1); TOTAL BILIRUBIN 0.2 mg/dL (0.0-1.0)
[2021-04-14] MEDS: traMADol HCL HCL 50 MG TABLET (ULTRAM) PO PRN (08:58)
[2021-04-14 12:00] VITALS: BP_SYST 159
[2021-04-14 13:31] VITALS: BP_SYST 159
[2021-04-14] MEDS ORDERED: PIPERACILLIN/TAZO 4.5GM/DEX-IS 100 ML IV SCH (14:00)
== END 2021-04-14 14:05 | disposition short-term general hospital (02) | DRG 872 ==
LOC: SED 23:08 → STU 04-11 06:52 → SMU 04-14 13:19
PROVIDERS: ADMIT Internal Medicine; ATTEND Internal Medicine
DX: A41.50 Gram-negative sepsis, unspecified (principal); L03.115 Cellulitis of right lower limb; L03.116 Cellulitis of left lower limb; N12 Tubulo-interstitial nephritis, not specified as acute or chronic; N39.0 Urinary tract infection, site not specified; E66.01 Morbid (severe) obesity due to excess calories; Z20.822 Contact with and (suspected) exposure to COVID-19; J44.9 Chronic obstructive pulmonary disease, unspecified; I11.0 Hypertensive heart disease with heart failure; I50.9 Heart failure, unspecified; Z79.84 Long term (current) use of oral hypoglycemic drugs; Z79.899 Other long term (current) drug therapy; Z68.37 Body mass index [BMI] 37.0-37.9, adult
CPT/HCPCS: 36415; 72192-TC; 73590-TC; 76376; 80048; 80053; 80061; 80202; 83605; 84443; 85025; 87040-TC; 93970; 96365; 96368; 99285; G0378; J0696; J2543; J3370; J7050; J7060